=== PATIENT | male | born 1995 | race Caucasian/White ===

== ENCOUNTER 2020-12-05 18:38 | Emergency (ER) | payer BC ==
[~2020-12-05] VITALS: Ht 193 cm; Wt 145.8 kg
[2020-12-05] MEDS ORDERED: RABIES VIRUS VACC PF 2.5 UNIT / 1 ML VIAL. VAX IM ONE (19:00)
[2020-12-05] MEDS ORDERED: RABIES IMMUNE GLOBULIN/PF 300 UNIT/ML 5ML VIAL. VAX IM ONE (19:00)
[2020-12-05] MEDS ORDERED: AMOX1TAB61 PO (19:08)
--- NOTE | 2020-12-05 19:09 | PHYS DOC ---
General Adult EDM: Chief Complaint: ANIMAL BITE HPI: HPI: Patient is a 25-year-old male who presents to the emergency department for a dog bite that occurred prior to arrival. Patient states that the stray dog attacked his dog and he broke it up and got bit on his right hand on his third finger. The dog was not captured. His tetanus is up-to-date. Patient is concerned that he needs a rabies vaccine. Patient denies any decreased range of motion or decreased sensation to fingers. (SUZIE PIMENTEL APRN) Review of Systems: Review of Systems: 14 body systems of the review of systems have been reviewed. See HPI for pertinent positive and negative responses, otherwise all other systems are negative, nonpertinent or noncontributory (SUZIE PIMENTEL APRN) Current Medications: Current Meds: Current Medications Medications (Trade) Dose Ordered Sig/[place] Start Time Stop Time Status Last Admin Dose Admin Rabies Immune Globulin (HyperRAB 300 UNIT/ML VIAL) 5 ml ONCE ONCE 12/05/20 19:00 12/05/20 19:01 UNV Rabies Vaccine Human Diploid Cell (Imovax Rabies 2.5 Unit / ml) 1 ml ONCE ONCE 12/05/20 19:00 12/05/20 19:01 UNV (SUZIE PIMENTEL APRN) Allergies: Allergies: Allergies Coded Allergies Type Severity Reaction Last Updated Verified No Known Drug Allergies 12/05/20 No (SUZIE PIMENTEL APRN) Physical Exam: PE: Constitutional: Well developed, well nourished, no acute distress, non-toxic appearance. [] HENT: Normocephalic, atraumatic Eyes: PERRL, EOMI, conjunctiva normal, no discharge. [] Neck: Normal range of motion, no stridor Cardiovascular: Normal peripheral perfusion Lungs & Thorax: Bilateral breath sounds clear to auscultation [] Abdomen: Soft and obese Skin: Warm, dry, no erythema, no rash. [] Back: Normal range of motion Extremities: No tenderness, no cyanosis, no clubbing, ROM intact, no edema. Right third finger: Puncture noted to palmar and dorsal aspect of patient's right third finger, range of motion intact, neuro intact Neurologic: Alert and oriented X 3, normal motor function, normal sensory function, no focal deficits noted. [] Psychologic: Affect normal, judgement normal, mood normal. [] (SUZIE PIMENTEL APRN) EKG: EKG: [] (SUZIE PIMENTEL APRN) Radiology/Procedures: Radiology/Procedures: [] (SUZIE PIMENTEL APRN) Heart Score: C/O Chest Pain: N/A Risk Factors: Risk Factors: DM, Current or recent (<one month) smoker, HTN, HLP, family history of CAD, obesity. Risk Scores: Score 0 - 3: 2.5% MACE over next 6 weeks - Discharge Home Score 4 - 6: 20.3% MACE over next 6 weeks - Admit for Clinical Observation Score 7 - 10: 72.7% MACE over next 6 weeks - Early Invasive Strategies (SUZIE PIMENTEL APRN) Course & Med Decision Making: Course & Med Decision Making Pertinent Labs and Imaging studies reviewed. (See chart for details) [] Patient is a 25-year-old male being seen in the ER for dog bite to his right third finger. An x-ray was performed to rule out a fracture and it was negative for any acute findings. Wound was cleansed with saline and chlorhexidine. Patient was given rabies vaccine and immunoglobulin. Patient ordered outpatient for remainder of the rabies series. Patient advised to apply Polysporin and keep finger bandaged. Discharged with abx. Given first dose of abx. Wound was cleansed and bandaged prior to discharge. Patient advised to monitor for any signs of infection. Patient placed on antibiotic prophylactically. (SUZIE PIMENTEL APRN) Course & Med Decision Making Did not see or evaluate patient. Did not discuss patient with ELECTRICAL FITTER. Agree with ELECTRICAL FITTER's work-up and disposition per note (MICHAEL IZAGUIRRE MD) [place] Disclaimer: Dragjad Disclaimer: This electronic medical record was generated, in whole or in part, using a voice recognition dictation system. (SUZIE PIMENTEL APRN) Departure Departure: Impression: Primary Impression: Dog bite Qualified Codes: W54.0XXA - Bitten by dog, initial encounter Disposition: HOME / SELF CARE / HOMELESS Condition: GOOD Patient Instructions: Animal Bite Additional Instructions: You were seen in the emergency department today for dog bite. And x-rays performed to rule out a fracture was negative for any acute findings. At home continue to keep your punctures clean and dry. You can wash with warm water and mild soap. You can apply Polysporin or bacitracin ointment and keep bandage in place. You were given your first dose of your rabies vaccine series today. Y ou will be discharged home with outpatient orders to receive remainder of the series. You will need to return to the ER on day 3, 7 and 14 to have the remainder of your rabies vaccines. You are also being discharged home with an antibiotic, please take this as directed. Make sure that you start and finish it completely. Monitor for any signs of infection which include redness, warmth, swelling or drainage from site. Follow-up with your primary care doctor tomorrow regarding your ER visit. Return to the emergency department if you have any signs of infection, high fevers refractory to treatment, decreased range of motion, decreased sensation to extremity your intractable nausea or vomiting. EMERGENCY DEPARTMENT GENERAL DISCHARGE INSTRUCTIONS Thank you for coming to [facility] (ED) today and trusting us with you care. We trust that you had a positivie experience in our Emergency Department. If you wish to speak to the department management, you may call the director at [phone]. YOUR FOLLOW UP INSTRUCTIONS ARE FOLLOWS: 1. Do you have a private Doctor? If you do not have a private doctor, please ask for a resource list of physicians or clinics that may be able to assist you with follow up care. 2. The Emergency Physician has interpreted your x-rays. The X-Ray specialist will also review them. If there is a change in the findings, you will be notified in 48 hours when at all possible. 3. A lab test or culture has been done, your results will be reviewed and you w ill be notified if you need a change in treatment. ADDITIONAL INSTRUCTIONS AND INFORMATION: 1. Your care today has been supervised by a physician who is specially trained in emergency care. Many problems require more than one evaluation for a complete diagnosis and treatment. We recommend that you schedule your follow up appointment as recommended to ensure complete treatment of you illness or injury. If you are unable to obtain follow up care and continue to have a problem, or if your condition worsens, we recommend that you return to the ED. 2. We are not able to safely determine your condition over the phone nor are we able to give sound medical advice over the phone. For these safety reasons, if you call for medical advice we will ask you to come to the ED for further evaluation. 3. If you have any questions regarding these discharge instructions please call the ED at [phone]. SAFETY INFORMATION: In the interest of safety, wellness, and injury prevention; we encourage you to wear your sealbelt, if you smoke; quite smoking, and we encourage family to use a protective helmet for bicycling and other sporting events that present an increased risk for head injury. IF YOUR SYMPTOMS WORSEN OR NEW SYMPTOMS DEVELOP, OR YOU HAVE CONCERNS ABOUT YOUR CONDITION; OR IF YOUR CONDITION WORSENS WHILE YOU ARE WAITING FOR YOUR FOLLOW UP APPOINTMENT; EITHER CONTACT YOUR PRIMARY CARE DOCTOR, THE PHYSICIAN WHOSE NAME AND NUMBER YOU WERE GIVEN, OR RETURN TO THE ED IMMEDIATELY. Scripts Amoxicillin/Potassium Clav (AUGMENTIN 875-125 TABLET) 1 Each Tablet 1 TAB PO BID for dog bite for 10 Days, #20 TAB 0 Refills Prov: SUZIE PIMENTEL APRN 12/05/20 SUZIE PIMENTEL APRN Dec 05, 2020 19:09 MICHAEL IZAGUIRRE MD Dec 05, 2020 20:52
[2020-12-05] MEDS ORDERED: AMOXICILLIN/K CLAV 875/125MG TABLET. PO ONE (19:15)
[2020-12-05 20:46] VITALS: BP 143/89
--- NOTE | 2020-12-06 01:12 | RAD ---
Three-view right hand dated 12/05/2020. No comparison available. Clinical data indication: Pain after injury. FINDINGS: 3 views the right hand show normal bony alignment. No displaced fracture. No periostitis or bone dest ruction. No acute osseous or articular abnormality. No radiopaque foreign body. IMPRESSION: No acute findings. Electronically signed by: Shola Galicia MD (12/06/2020 1:10 AM) [facility]
== END 2020-12-05 21:02 | disposition home or self-care (01) ==
LOC: ER 18:38
DX: S61.232A Puncture wound without foreign body of right middle finger without damage to nail, initial encounter (principal); W54.0XXA Bitten by dog, initial encounter; Y93.89 Activity, other specified; Y92.89 Other specified places as the place of occurrence of the external cause; Y99.8 Other external cause status
CPT/HCPCS: 73130; 90375; 90471; 90675; 96372; 99284; 99283-25